=== PATIENT | female | born 1965 | race Caucasian/White ===

== ENCOUNTER 2018-06-17 06:14 | Emergency (ER) | payer OTHER ==
[~2018-06-17] VITALS: Ht 157.5 cm; Wt 76.1 kg
[~2018-06-17 06:14] MED LIST: ABILIFY5 MG PO; ADDERALL XR20 M1 PO; ADDERALL20 MG PO; ALPRAZOLAM0.5 MG PO; BLOOD PRESSURE MEDS; COMPAZINE10 MG PO; DEPAKOTE ER500 MG PO; DESYREL100 MG PO; ESCITALOPRAM OX20 MG PO; FLEXERIL10 MG PO; Feosol PO; HYDROCHLOROTHIA25 MG PO; HYDROCHLOROTHIA50 MG PO; INDERAL20 MG PO; IRON325 MG PO; KLONOPIN0.5 M1 PO; LIPITOR40 MG PO; LISINOPRIL/HCTZ; LITHIUM CARBON150 MG PO; MOBIC7.5 MG PO; OMEPRAZOLE20 M2 PO; OMEPRAZOLE40 M1 PO; OPANA ER20 MG PO; OXYCODONE HCL15 MG PO; PRINIVIL10 MG PO; PRINIVIL20 MG PO; PriLOSEC PO; QUETIAPINE FUM100 MG PO; SALONPAS LARGE1 EACH TD; TAPAZOLE10 MG PO; TOPAMAX50 MG PO; VICODIN 5-3001 EACH PO; VICODIN,LORT1 TABLET PO; VISTARIL25 MG PO; ZOLPIDEM TARTRA10 MG PO
[2018-06-17 06:52] LABS: BASOPHIL (%) 0.9 % (0-1); BASOPHIL COUNT 0.1 K/uL (0-0.1); EOSINOPHIL (%) 3.1 % (0-5); EOSINOPHIL COUNT 0.3 K/uL (0-0.3); HEMOGLOBIN 15.5 G/DL (11.9-15.5); IMMATURE GRANULOCYTE (%) 0.2 % (0.0-0.7); LYMPHOCYTE COUNT 3.2 K/uL (1.0-2.8); MCH 27.4 PG (29.0-34.0); MCHC 34.4 G/DL (30.0-36.0); MCV 79.6 FL (83-99); MONOCYTE COUNT 0.6 K/uL (0-0.8); NEUTROPHIL (%) 52.8 % (45-76); NEUTROPHIL COUNT 4.6 K/uL (1.8-6.4); PLATELET COUNT 330 K/uL (156-360); RBC DIS.WIDTH-CV 13.1 % (11.8-14.6); RBC DIS.WIDTH-SD 37.8 % (39-53); RED BLOOD COUNT 5.65 M/uL (3.80-5.20); WHITE BLOOD COUNT 8.8 K/uL (4.1-10.2)
[2018-06-17 07:25] LABS: TROP-I INTERPRETATION NEGATIVE; TROPONIN-I < 0.01 ng/mL (0.0-0.30)
[2018-06-17 07:34] LABS: CHLORIDE 95 MEQ/L (99-109); CREATININE 0.9 MG/DL (0.6-1.3); GFR ESTIMATE (CALCULATED) > 59 mL/min/; GLUCOSE 114 mg/dL (70-99); POTASSIUM 3.4 MEQ/L (3.7-5.4); SODIUM 135 MEQ/L (136-147); UREA NITROGEN (BUN) 13 mg/dL (9-23)
[2018-06-17 09:24] LABS: TROP-I INTERPRETATION NEGATIVE; TROPONIN-I < 0.01 ng/mL (0.0-0.30)
[2018-06-17 09:47] VITALS: BP 149/93
== END 2018-06-17 09:47 | disposition home or self-care (01) ==
LOC: EME 06:14
PROVIDERS: Emergency Medicine
DX: R07.89 Other chest pain (principal); M19.90 Unspecified osteoarthritis, unspecified site; G89.29 Other chronic pain; I10 Essential (primary) hypertension; K21.9 Gastro-esophageal reflux disease without esophagitis; F90.9 Attention-deficit hyperactivity disorder, unspecified type; F42.9 Obsessive-compulsive disorder, unspecified; Z90.49 Acquired absence of other specified parts of digestive tract; Z88.2 Allergy status to sulfonamides; Z88.6 Allergy status to analgesic agent; F41.9 Anxiety disorder, unspecified
CPT/HCPCS: 71045; 80048; 84484; 85025; 93005